=== PATIENT | female | born 1955 | race African-American/Black ===

== ENCOUNTER 2024-06-23 13:52 | Emergency (ER) | payer OTHER, MEDICAID ==
[~2024-06-23] VITALS: Ht 172.7 cm; Wt 70.0 kg
[~2024-06-23 13:52] MED LIST: ASPI-1406 PO; DILT30TA37 PO; HYDR25TA PO; LOSA50TA41 PO
[2024-06-23 13:55] VITALS: TEMP 98.5; O2SAT 100
[2024-06-23 16:30] LABS: BASOPHILS % 0.6 % (0.0-2.0); EOSINOPHILS % 0.7 % (0.0-5.0); HEMATOCRIT. 35.1 % (36.0-48.0); HEMOGLOBIN. 11.3 g/dL (12.0-16.0); LYMPHOCYTES % 16.9 % (20.0-50.0); MEAN CORPUSCULAR HEMOGLOBIN 29.1 pg (28.0-32.0); MEAN CORPUSCULAR HGB CONC 32.1 g/dL (31.0-37.0); MEAN CORPUSCULAR VOLUME 90.7 fL (81.0-99.0); MONOCYTES % 7.9 % (2.0-8.0); NEUTROPHILS % 73.9 % (40.0-76.0); PLATELET 195 x1000/uL (130-400); RED BLOOD CELL COUNT 3.88 mill/uL (4.2-5.4); RED CELL DISTRIBUTION WIDTH 14.3 % (11.6-14.6); WHITE BLOOD COUNT 10.5 x1000/uL (4.5-11.0)
[2024-06-23 16:36] LABS: CARBON DIOXIDE 29 mEq/L (21-32); CHLORIDE 107 mEq/L (98-107); POTASSIUM 4.1 mEq/L (3.5-5.1); SODIUM 141 mEq/L (136-145)
[2024-06-23 16:37] LABS: CALCIUM 9.5 mg/dL (8.7-10.4)
[2024-06-23 16:40] LABS: PROTHROMBIN TIME 11.2 sec (9.6-11.0)
[2024-06-23 16:41] LABS: GLUCOSE 98 mg/dL (70-105)
[2024-06-23 16:42] LABS: UREA NITROGEN BLOOD 37 mg/dL (9-23)
[2024-06-23 16:43] LABS: ALANINE AMINOTRANSFERASE 25 IU/L (10-49); ALBUMIN 3.7 g/dL (3.2-4.8); ASPARTATE AMINOTRANSFERASE 25 IU/L (<34)
[2024-06-23 16:44] LABS: BILIRUBIN DIRECT 0.1 mg/dL (<=3.0); BILIRUBIN TOTAL 0.4 mg/dL (0.1-1.0); PROTEIN TOTAL 6.3 g/dL (6.0-8.3)
[2024-06-23 20:51] LABS: BASOPHILS % 0.5 % (0.0-2.0); EOSINOPHILS % 0.6 % (0.0-5.0); HEMATOCRIT. 33.7 % (36.0-48.0); HEMOGLOBIN. 10.8 g/dL (12.0-16.0); LYMPHOCYTES % 20.1 % (20.0-50.0); MEAN CORPUSCULAR HEMOGLOBIN 29.3 pg (28.0-32.0); MEAN CORPUSCULAR VOLUME 91.5 fL (81.0-99.0); MEAN PLATELET VOLUME 7.9 fl (7.4-10.4); MONOCYTES % 7.5 % (2.0-8.0); NEUTROPHILS % 71.3 % (40.0-76.0); PLATELET 180 x1000/uL (130-400); RED BLOOD CELL COUNT 3.68 mill/uL (4.2-5.4); RED CELL DISTRIBUTION WIDTH 14.3 % (11.6-14.6); WHITE BLOOD COUNT 9.9 x1000/uL (4.5-11.0)
[2024-06-23 22:00] VITALS: BP 121/76; PULSE 80; RESP 15; O2SAT 100
[2024-06-23] MEDS ORDERED: IOHEXOL-300 100 ML BOTTLE ONE (23:29)
== END 2024-06-23 23:21 | disposition short-term general hospital (02) ==
LOC: ER 13:52 → EDBEDREQ 22:05 → EDBEDREQSVC 22:05 → EDBEDREQTM 22:05 → ER 23:21
DX: K62.5 Hemorrhage of anus and rectum (principal); I48.91 Unspecified atrial fibrillation; E11.9 Type 2 diabetes mellitus without complications; I10 Essential (primary) hypertension; Z86.73 Personal history of transient ischemic attack (TIA), and cerebral infarction without residual deficits; Z79.899 Other long term (current) drug therapy; Z79.82 Long term (current) use of aspirin
CPT/HCPCS: 99285; 74177; 80076; 80048; 83605; 83690; 85025; 85610; 86850; 86900; 86901; 36415; Q9967

== ENCOUNTER 2025-03-22 18:55 | Emergency (ER) | payer OTHER ==
[~2025-03-22] VITALS: Ht 160 cm; Wt 55.0 kg
[2025-03-22 19:01] VITALS: O2SAT 96
[2025-03-22 20:01] LABS: BASOPHILS % 0.8 % (0.0-2.0); EOSINOPHILS % 0.8 % (0.0-5.0); HEMATOCRIT. 45.3 % (36.0-48.0); LYMPHOCYTES % 13.3 % (20.0-50.0); MEAN CORPUSCULAR VOLUME 87.7 fL (81.0-99.0); MEAN PLATELET VOLUME 7.7 fl (7.4-10.4); MONOCYTES % 9.6 % (2.0-8.0); NEUTROPHILS % 75.5 % (40.0-76.0); PLATELET 236 x1000/uL (130-400); RED BLOOD CELL COUNT 5.16 mill/uL (4.2-5.4); RED CELL DISTRIBUTION WIDTH 14.1 % (11.6-14.6); WHITE BLOOD COUNT 5.9 x1000/uL (4.5-11.0)
[2025-03-22 20:13] LABS: CHLORIDE 99 mEq/L (98-107); POTASSIUM 3.5 mEq/L (3.5-5.1); SODIUM 138 mEq/L (136-145)
[2025-03-22 20:14] LABS: CARBON DIOXIDE 29 mEq/L (21-32)
[2025-03-22 20:15] LABS: CALCIUM 10.1 mg/dL (8.7-10.4)
[2025-03-22 20:19] LABS: CREATININE 0.9 mg/dL (0.6-1.0); GLUCOSE 133 mg/dL (70-105)
[2025-03-22 20:20] LABS: UREA NITROGEN BLOOD 21 mg/dL (9-23)
[2025-03-22 20:21] LABS: ALANINE AMINOTRANSFERASE 37 IU/L (10-49); ALBUMIN 4.5 g/dL (3.2-4.8); ASPARTATE AMINOTRANSFERASE 30 IU/L (<34)
[2025-03-22 20:22] LABS: BILIRUBIN TOTAL 0.7 mg/dL (0.1-1.0); PROTEIN TOTAL 7.7 g/dL (6.0-8.3)
[2025-03-22] MEDS: METOCLOPRAMIDE HCL 10MG/2ML VIAL IV ONE (20:45)
[2025-03-22] MEDS: TETRACAINE 0.5% OPHTH DROPS 4ML RIGHTEYE ONE (21:41)
[2025-03-22] MEDS: MORPHINE SULFATE 4 MG/ML INJ (FOR IV/IM USE) IV ONE (22:52)
[2025-03-23] MEDS: ACETAMINOPHEN 325MG TABLET PO ONE (01:19)
[2025-03-23 01:25] VITALS: BP 152/80; PULSE 93; RESP 18; TEMP 36.6; O2SAT 100
== END 2025-03-23 01:30 | disposition short-term general hospital (02) ==
LOC: ER 18:55 → EDBEDREQTM 22:33 → EDBEDREQ 22:33 → ER 03-23 01:30
DX: R51.9 Headache, unspecified (principal); E11.9 Type 2 diabetes mellitus without complications; I10 Essential (primary) hypertension; I48.91 Unspecified atrial fibrillation; Z79.82 Long term (current) use of aspirin; Z79.899 Other long term (current) drug therapy
CPT/HCPCS: 99285; 70450; 96374; 96375; 80053; 85025; 36415; 70486; 93005; 82962; J2765; J2270